=== PATIENT | male | born 1960 | race Caucasian/White ===

== ENCOUNTER 2017-06-12 08:30 | Inpatient (IN) | payer MEDICAID ==
[~2017-06-12 08:30] MED LIST: Acetaminophen 500 MG Tab PO ONE; Gabapentin 300 MG Cap PO ONE; Lactated Ringers 1,000 ML IV SCH; Scopolamine 1.5 MG Transdermal Patch TOP SCH; ceFAZolin 2 GM in Premix Bag 1 BAG IV ONE
[2017-06-13] MEDS ORDERED: Acetaminophen 500 MG Tab PO ONE (05:30)
[2017-06-13] MEDS ORDERED: Gabapentin 300 MG Cap PO ONE (05:30)
[2017-06-13] MEDS ORDERED: Lactated Ringers 1,000 ML IV SCH (05:56)
[2017-06-13] MEDS ORDERED: Scopolamine 1.5 MG Transdermal Patch TOP SCH (06:30)
[2017-06-13] MEDS ORDERED: Thrombin (Bovine) 5,000 Unit Kit ONE (06:45)
[2017-06-13] MEDS ORDERED: Bupivacaine 0.5%/EPINEPHrine 1:200,000 50 ML MDV ONE (06:45)
[2017-06-13] MEDS ORDERED: Povidone-Iodine 10% Soln 118.25 ML Bottle ONE (06:45)
[2017-06-13] MEDS ORDERED: Dexamethasone 4 MG/ML SDV ONE (07:19)
[2017-06-13] MEDS ORDERED: fentaNYL 250 MCG/5 ML SDV ONE (07:19)
[2017-06-13] MEDS ORDERED: Propofol 200 MG/20 ML SDV ONE (07:19)
[2017-06-13] MEDS ORDERED: Succinylcholine 200 MG/10 ML MDV ONE (07:19)
[2017-06-13] MEDS ORDERED: Ondansetron 4 MG/2 ML SDV ONE (07:19)
[2017-06-13] MEDS ORDERED: Rocuronium 50 MG/5 ML Vial ONE (07:19)
[2017-06-13] MEDS ORDERED: Glycopyrrolate 0.2 MG/ML 5 ML MDV ONE (07:19)
[2017-06-13] MEDS ORDERED: Neostigmine Methylsulfate 1 MG/ML 5 ML Syringe ONE (07:19)
[2017-06-13] MEDS ORDERED: ceFAZolin 2 GM in Premix Bag 1 BAG IV ONE (07:30)
[2017-06-13] MEDS ORDERED: Ketamine 500 MG/5 ML MDV IV SCH (07:30)
[2017-06-13] MEDS ORDERED: Lactated Ringers 1,000 ML ONE ×2 (08:49)
[2017-06-13] MEDS ORDERED: Zolpidem 5 MG Tab PO PRN (10:19)
[2017-06-13] MEDS ORDERED: Sennosides 8.6 MG Tab PO PRN (10:19)
[2017-06-13] MEDS ORDERED: HYDROmorphone 1 MG/ML Syringe IVPUSH PRN (10:19)
[2017-06-13] MEDS ORDERED: Aluminum Hydroxide/Magnesium Hydroxide/Simethicone Susp 30 ML Cup PO PRN (10:19)
[2017-06-13] MEDS ORDERED: Naloxone 0.4 MG/ML SDV IVPUSH PRN (10:19)
[2017-06-13] MEDS ORDERED: Magnesium Hydroxide 400 MG/5 ML Susp 30 ML Cup PO PRN (10:19)
[2017-06-13] MEDS ORDERED: Ondansetron 4 MG/2 ML SDV IVPUSH PRN (10:19)
[2017-06-13] MEDS ORDERED: Albuterol 8 GM Inhaler INH PRN (10:22)
[2017-06-13] MEDS ORDERED: ceFAZolin 2 GM in Sodium Chloride 0.9% 50 ML IV SCH (10:30)
[2017-06-13] MEDS ORDERED: Ondansetron 4 MG/2 ML SDV IVPUSH ONE (10:41)
[2017-06-13] MEDS ORDERED: Acetaminophen 1,000 MG in Premix Bag 1 BAG IV ONE (10:45)
--- NOTE | 2017-06-13 14:19 | OR ---
DATE OF PROCEDURE: 06/13/2017 PREOPERATIVE DIAGNOSIS: Cervical stenosis, C5-6 and C6-7. POSTOPERATIVE DIAGNOSIS: Cervical stenosis, C5-6 and C6-7. PROCEDURES PERFORMED: 1. Anterior cervical diskectomy and fusion, C5-6 and C6-7. 2. Anterior instrumentation, C5-6 and C6-7. 3. Use of operating microscope. 4. Use of Signify allograft and interbody space. 5. Placement of intervertebral spacers. 6. 16 mm screws used in the anterior plate instrumentation. SUPERVISOR CABINETMAKER: ALISON Dawn Physician special event assistant, ALISON Burgos, played an essential role in assisting in this case, helping to position the patient, retract structures as needed, as well as suturing and cutting sutures as indicated. Her presence improved the patient's safety and decreased operative time. ANESTHESIA: General endotracheal intubation. FLUIDS: Lactated Ringer solution. ESTIMATED BLOOD LOSS: 25 mL. COMPLICATIONS: None. SPECIMENS: None. DISCHARGE DISPOSITION: Stable, to PACU. INDICATION FOR PROCEDURE: The patient was seen preoperatively by myself in the clinic. He had failed nonoperative treatment. Preoperative imaging confirmed the above-mentioned diagnosis. Risks and benefits of the procedure were explained to the patient. Informed consent was obtained. PROCEDURE IN DETAIL: The patient was seen preoperatively by myself and the anesthesia staff in the preoperative holding area where the operative site was marked. He was brought to the operative suite by the anesthesia staff where general anesthesia was administered. The patient was placed supine on the Denys table with a flat bed. All extremities were found to be well padded. His knees were flexed for the procedure and padded, as well as his feet were padded. Neuromonitoring leads were placed. The patient was then prepped and draped in sterile manner. Time-out was called, identifying the correct patient, the correct procedure, the correct site, and that antibiotics had been begun within an appropriate period of time. Neuromonitoring leads were normal. Baseline remained normal throughout the case. Sterilely draped fluoroscopy unit was then used for identification of the C5-6 and C6- 7 levels on lateral views. I then made an oblique incision on the right side just medial to the sternocleidomastoid down to the level of the platysma approximately 3 cm long. I then used a Weitlaner retractor. I then used the Bovie to go through the platysma. I then went through the medial fascia of the sternocleidomastoid with the Metzenbaum and pickups and used bipolar electrocautery at times, and then using blunt dissection, went down to the prevertebral space. I then inserted the Cloward retractor, then cleared over what I believed to be the C6-7 level from medial to the borders of the medial aspect of the longus colli and undermined them slightly with the Bovie electrocautery unit. I then applied a 45 mm and a 35 mm narrow blade with teeth and confirmed the C6-7 level. I then drilled the osteophytes anteriorly and then applied two 12 mm Mermentau pins for distraction. Both of these levels were very difficult to distract. I then removed the disk using the drill pituitaries and 3.0 angled curettes down to the level of the posterior longitudinal ligament. I had to go through the anterior, inferior, posterior osteophyte at the superior vertebral level on both levels. I completed the C6-7 level and then the C5-6 level. At that point in time, I then used the operating microscope and then undermined the posterior longitudinal ligament at the inferior aspect of the superior vertebral body with the 3.0 angled curette until I was able to get to the posterior longitudinal ligament with a 3.0 angled curette or a nerve hook, then generally detached the posterior longitudinal ligament with Kerrison, and then exposed the left side very well to about a quarter past the midline on the right clearing so I could totally expose the spinal cord. I then was able to pass a nerve hook and 3.0 angled curette out the foramen. I did the C5-6 level first and used at times Mermentau pins and intervertebral spreaders for distraction. During the case, I had used thrombin-soaked Gelfoam, cottonoids, and FloSeal for hemostasis. I then sequentially inserted a 5, 7, and an 8 spacer, 7-degree 14 x 16, and then inserted the final spacer with an 8 mm height at C5-6 and then all my holes and drilled them. I did confirm, prior to sinking the screws, that we had plenty of room and that the anterior plates were down to the vertebral body. I then repeated this procedure at C6-7. We then controlled any extra bleeding with bipolar electrocautery. We then irrigated with 2 L of Betadine-infused irrigation, then applied FloSeal to the prevertebral space, then tamped any excess FloSeal out, then placed a drain out the lateral side of the wound, then closed with three 2-0 Vicryl interrupted sutures through the platysma, followed by a 3-0 Monocryl, followed by sterile dressing, and then attached the drain to a ROWAN. The patient was then allowed to awaken from general anesthesia and taken to the PACU in stable condition. Tra Thrasher DO /[id number]
[2017-06-13] MEDS: oxyCODONE 5 MG Tab PO PRN ×2 (15:49→20:08)
[2017-06-13] MEDS: ceFAZolin 2 GM in Premix Bag 1 BAG IV SCH (15:49)
[2017-06-13] MEDS: Diazepam 5 MG Tab PO PRN (17:08)
[2017-06-13] MEDS ORDERED: Benzocaine/Cetylpyridinium/Menthol Lozenge MUCMEM PRN (21:11)
[2017-06-13] MEDS ORDERED: FLU Vacc QS 2017-18 (36mos UP)/PF 60 MCG/0.5 ML Syringe IM ONE (22:00)
[2017-06-14] MEDS: ceFAZolin 2 GM in Premix Bag 1 BAG IV SCH ×2 (00:04→08:07)
[2017-06-14] MEDS: oxyCODONE 5 MG Tab PO PRN ×3 (00:05→08:23)
[2017-06-14] MEDS: Diazepam 5 MG Tab PO PRN (03:22)
--- NOTE | 2017-06-14 08:39 | PCM.DCSUM1 ---
Discharge Summary - Hospital Course Brief History: 57-year-old male with months of neck pain and bilateral upper extremity radiculopathy after fall head down on a gravel road from semi-while unloading. - Discharge Data Discharge Date: 06/14/17 Discharge Disposition: Home, Self-Care 01 Condition: Good - Patient Summary/Data Operative Procedure(s) Performed: anterior cervical discectomy and fusion C5-6 and C6-7 Complications: none Consults: Consultations 06/13/17 10:19 OT Evaluation and Treatment [CONS] Routine Please Evaluate and Treat. OT Reason for Consult: Strengthening This query below is only for informational purposes and is not editable. PT Evaluation and Treatment [CONS] Routine Please Evaluate and Treat. PT Reason for Consult: Strengthening This query below is only for informational purposes and is not editable. Hospital Course: patient was admittedon , 06/13/2017. He was kept for the above- mentioned procedure. He was kept overnight. He did well postoperatively. Drain was removed on postoperative day 1. He was discharged to home with one-month follow-up. - Patient Instructions Diet: Usual Diet as Tolerated Activity: As Tolerated, No Lifting Over 10 Pounds Driving: Do Not Drive Showering/Bathing: May Shower Wound/Incision Care: Keep Operative Site/Wound Site Clean and Dry, Change Dressing Daily Notify Provider of: Fever, Increased Pain, Swelling and Redness, Drainage, Nausea and/or Vomiting - Discharge Plan Home Medications: Home Meds Albuterol [IJD: Albuterol HFA] 2 puff INH Q4H PRN 06/06/17 [History] Carisoprodol 350 mg PO TID PRN 06/06/17 [History] Hydrocodone/Acetaminophen [Hydrocodon-Acetaminophen 5-325] 1 tab PO Q6H PRN [History] Meloxicam 15 mg PO DAILY 06/06/17 [History] Naproxen [Naprosyn] 500 mg PO BID 06/06/17 [History] Rosuvastatin [Crestor] 10 mg PO DAILY 06/06/17 [History] methylPREDNISolone [Medrol] 2 mg PO ASDIRECTED 06/07/17 [History] - General Info Functional Status: Reports: Pain Controlled - Review of Systems General: Reports: No Symptoms HEENT: Reports: No Symptoms Pulmonary: Reports: No Symptoms Cardiovascular: Reports: No Symptoms Gastrointestinal: Reports: No Symptoms Genitourinary: Reports: No Symptoms Musculoskeletal: Reports: Neck Pain Skin: Reports: No Symptoms Neurological: Reports: No Symptoms Psychiatric: Reports: No Symptoms - Patient Data Vitals - Most Recent: Last Vital Signs Temp 100.4 F 06/14/17 07:33 Pulse 68 06/14/17 07:33 Resp 18 06/14/17 07:33 BP 116/58 L 06/14/17 07:33 Pulse Ox 94 L 06/14/17 07:38 Weight - Most Recent: 211 lb 9.6 oz I&O - Last 24 hours: Intake & Output 06/13/17 06/14/17 06/14/17 22:59 06:59 14:59 Intake Total 560 955 Output Total 875 525 Balance -315 430 Med Orders - Current: Current Medications Al Hydroxide/Mg Hydroxide (Mag-Al Plus) 30 ml PO Q4H PRN PRN Reason: Indigestion Albuterol (Ventolin Hfa) 0 gm INH Q4H PRN PRN Reason: Shortness of Breath Benzocaine/Menthol (Cepacol Sore Throat) 1 lozenge MUCMEM ASDIRECTED PRN PRN Reason: Sore Throat Last Admin: 06/13/17 21:44 Dose: 1 lozenge Carisoprodol (Soma) 350 mg PO TID PRN PRN Reason: Spasms Diazepam (Valium.) 5 mg PO Q6H PRN PRN Reason: Spasms Last Admin: 06/14/17 03:22 Dose: 5 mg Hydromorphone HCl (Dilaudid) 1 mg IVPUSH Q2H PRN PRN Reason: Pain Stop: 06/14/17 10:19 Last Admin: 06/13/17 11:59 Dose: 1 mg Lactated Ringer's (Ringers, Lactated) 1,000 mls @ 100 mls/hr IV ASDIRECTED ADELINA Last Admin: 06/13/17 06:56 Dose: 100 mls/hr Magnesium Hydroxide (Milk Of Magnesia) 30 ml PO BID PRN PRN Reason: Constipation Naloxone HCl (Narcan) 0.2 mg IVPUSH ONETIME PRN PRN Reason: Oversedation Ondansetron HCl (Zofran) 8 mg IVPUSH Q4H PRN PRN Reason: Nausea/Vomiting Oxycodone HCl (Oxycodone) 10 mg PO Q4H PRN PRN Reason: Pain Stop: 06/14/17 10:19 Last Admin: 06/14/17 08:23 Dose: 10 mg Oxycodone/Acetaminophen (Percocet 325-5 Mg) 2 tab PO Q4H PRN PRN Reason: Pain Rosuvastatin Calcium (Crestor) 10 mg PO BEDTIME ADELINA Scopolamine (Transderm-Scop) 1.5 mg TOP Q72H ADELINA Stop: 06/16/17 06:00 Last Admin: 06/13/17 06:04 Dose: 1.5 mg Senna (Senna) 8.6 mg PO BID PRN PRN Reason: Constipation Zolpidem Tartrate (Ambien) 5 mg PO BEDTIME PRN PRN Reason: Sleep Discontinued Medications Acetaminophen (Tylenol Extra Strength) 1,000 mg PO ONETIME ONE Stop: 06/12/17 05:31 Last Admin: 06/13/17 15:43 Dose: Not Given Acetaminophen (Tylenol Extra Strength) 1,000 mg PO ONETIME ONE Stop: 06/13/17 05:31 Last Admin: 06/13/17 06:03 Dose: 1,000 mg Bupivacaine HCl/Epinephrine Bitart (Marcaine 0.5%/Epinephrine 1:200,000) Confirm Administered Dose 50 ml .ROUTE .STK-MED ONE Stop: 06/13/17 06:46 Last Admin: 06/13/17 08:35 Dose: 10 ml Dexamethasone (Dexamethasone) Confirm Administered Dose 4 mg .ROUTE .STK-MED ONE Stop: 06/13/17 07:20 Fentanyl (Sublimaze) Confirm Administered Dose 250 mcg .ROUTE .STK-MED ONE Stop: 06/13/17 07:20 Fentanyl Citrate (Fentanyl) Confirm Administered Dose 500 mcg .ROUTE .STK-MED ONE Stop: 06/13/17 08:04 Gabapentin (Neurontin) 300 mg PO ONETIME ONE Stop: 06/12/17 05:31 Last Admin: 06/13/17 15:43 Dose: Not Given Gabapentin (Neurontin) 300 mg PO ONETIME ONE Stop: 06/13/17 05:31 Last Admin: 06/13/17 06:03 Dose: 300 mg Glycopyrrolate (Robinul) Confirm Administered Dose 1 mg .ROUTE .STK-MED ONE Stop: 06/13/17 07:20 Lactated Ringer's (Ringers, Lactated) 1,000 mls @ 100 mls/hr IV ASDIRECTED [facility] Cefazolin Sodium 2 gm/ Premix 20 mls @ 240 mls/hr IV ONETIME ONE Stop: 06/13/17 07:34 Last Admin: 06/13/17 07:19 Dose: 240 mls/hr Ketamine HCl 100 mg/ Sodium (Chloride) 100 mls @ 26.4 mls/hr IV ASDIRECTED [facility] PRN Reason: 5 MCG/KG/MIN Lactated Ringer's (Ringers, Lactated) Confirm Administered Dose 1,000 mls @ as directed .ROUTE .STK-MED ONE Stop: 06/13/17 08:50 Lactated Ringer's (Ringers, Lactated) Confirm Administered Dose 1,000 mls @ as directed .ROUTE .STK-MED ONE Stop: 06/13/17 08:50 Acetaminophen 1,000 mg/ Premix 100 mls @ 400 mls/hr IV ONETIME ONE Stop: 06/13/17 10:59 Last Admin: 06/13/17 15:42 Dose: Not Given Cefazolin Sodium 2 gm/ Sodium (Chloride) 50 mls @ 100 mls/hr IV Q8H [facility] Stop: 06/14/17 02:59 Last Admin: 06/13/17 22:12 Dose: Not Given Cefazolin Sodium 2 gm/ Premix 50 mls @ 100 mls/hr IV Q8H [facility] Stop: 06/14/17 08:29 Last Admin: 06/14/17 08:07 Dose: 100 mls/hr Influenza Virus Vaccine (Fluzone Quad 3430-3114) 60 mcg IM .ONCE ONE Stop: 06/13/17 22:01 Ketamine HCl (Ketalar) 44 mg IV ASDIRECTED [facility] Neostigmine Methylsulfate (Neostigmine) Confirm Administered Dose 5 mg .ROUTE .STK-MED ONE Stop: 06/13/17 07:20 Ondansetron HCl (Zofran) Confirm Administered Dose 4 mg .ROUTE .STK-MED ONE Stop: 06/13/17 07:20 Ondansetron HCl (Zofran) 4 mg IVPUSH ONETIME ONE Stop: 06/13/17 10:42 Last Admin: 06/13/17 10:47 Dose: 4 mg Povidone Iodine (Betadine 10% Soln) Confirm Administered Dose 1 ml .ROUTE .STK- MED ONE Stop: 06/13/17 06:46 Last Admin: 06/13/17 08:34 Dose: 40 ml Propofol (Diprivan 20 Ml) Confirm Administered Dose 200 mg .ROUTE .STK-MED ONE Stop: 06/13/17 07:20 Rocuronium [place] (Zemuron) Confirm Administered Dose 50 mg .ROUTE .STK-MED ONE Stop: 06/13/17 07:20 Rosuvastatin Calcium (Crestor) 10 mg PO DAILY ADELINA Rosuvastatin Calcium (Crestor) 10 mg PO DAILY ADELINA Succinylcholine Chloride (Quelicin) Confirm Administered Dose 200 mg .ROUTE .STK -MED ONE Stop: 06/13/17 07:20 Thrombin (Thrombin-Jmi) Confirm Administered Dose 15,000 unit .ROUTE .STK-MED ONE Stop: 06/13/17 06:46 Last Admin: 06/13/17 08:34 Dose: 10,000 unit - Exam General: Reports: Alert, Oriented HEENT: Reports: Pupils Equal, Pupils Reactive, Mucous Membr. Moist/[place] Neck: Reports: Supple, Trachea Midline Extremities: Normal Inspection, Arm Pain Skin: Reports: Warm, Dry, Intact Wound/Incisions: Reports: Healing Well, Dressing Dry and Intact, No Drainage Neurological: Reports: No New Focal Deficit Psy/Mental Status: Reports: Alert, Normal Affect, Normal Mood Discharge Operative/Procedures - Procedures Performed Operations: anterior cervical discectomy and fusion C5-6 and C6-7 *Q Meaningful Use (DIS) - VTE *Q VTE Criteria *Q: - Stroke *Q Stroke Criteria *Q: - AMI *Q AMI Criteria *Q:
[2017-06-14] MEDS ORDERED: Rosuvastatin 10 MG Tab PO SCH ×3 (09:00→21:00)
[2017-06-14] MEDS ORDERED: FLU Vacc QS 2017-18 (36mos UP)/PF 60 MCG/0.5 ML Syringe IM ONE ×2 (10:00→14:00)
[2017-06-14] MEDS ORDERED: Acetaminophen/oxyCODONE 325-5 MG Tab PO PRN (10:19)
== END 2017-06-14 14:30 | disposition home or self-care (01) | DRG 473 ==
LOC: JP.SDS 06-13 05:31 → JP.SDSSCHI 06-13 05:31 → EDSTATUS 06-13 07:30 → JP.MS 06-13 10:19
PROVIDERS: ADMIT Orthopaedic Surgery; ATTEND Orthopaedic Surgery
PROC: 0RG10A0 Fusion of Cervical Vertebral Joint with Interbody Fusion Device, Anterior Approach, Anterior Column, Open Approach (ICD-10-PCS; principal; 2017-06-13)
PROC: 0RT30ZZ Resection of Cervical Vertebral Disc, Open Approach (ICD-10-PCS; 2017-06-13)
DX: M48.02 Spinal stenosis, cervical region (principal); M54.12 Radiculopathy, cervical region; Z23 Encounter for immunization
CPT/HCPCS: 36415; 76001; 86850; 86900; 86901; 90686; 94762; 97162-GP; 97165-GO; 97530-GP; 97535-GP; A9270-GY; C1713; J0330; J0690; J1100; J1170; J2405; J2704; J2710; J3010; J7030; J7120